=== PATIENT | male | born 1965 | race Caucasian/White ===

== ENCOUNTER 2019-12-26 19:44 | Emergency (ER) | payer SELFPAY ==
[2019-12-26 20:34] LABS: Absolute Lymphocytes (CBC) 1.5 K/uL (0.7-4.9); Basophils % 0.8 % (0-1.3); Hematocrit 40.5 % (39.6-49.0); Lymphocytes % 25.2 % (15.3-44.8); MPV 9.4 fL (7.6-11.3)
[2019-12-26] MEDS ORDERED: ONDANSETRON 4 MG/2 ML VIAL ONE (20:34)
[2019-12-26] MEDS ORDERED: NA CHLORIDE 0.9% 1,000 ML ONE (20:34)
[2019-12-26] MEDS ORDERED: MORPHINE 4 MG/ML SYR ONE (20:35)
[2019-12-26 20:52] LABS: ALT/SGPT 179 U/L (12-78); AST/SGOT 157 U/L (15-37); Albumin 2.8 g/dL (3.4-5.0); Alkaline Phosphatase 152 U/L (45-117); BUN Blood Urea Nitrogen 12 mg/dL (7-18); Bicarbonate 24 mmol/L (21-32); Bilirubin Direct 1.1 mg/dL (0-0.2); Bilirubin Total 1.5 mg/dL (0.2-1.0); Glucose Level 89 mg/dL (74-106); Lipase 408 U/L (73-393); Potassium 3.9 mmol/L (3.5-5.1); Protein, Total 7.4 g/dL (6.4-8.2); Sodium Level 141 mmol/L (136-145)
[2019-12-26 21:36] LABS: Urine Blood NEGATIVE (NEG); Urine Glucose NEGATIVE (NEG); Urine Protein NEGATIVE (NEG); Urine Specific Gravity 1.025 (1.005-1.030); Urine pH 5.5 (5.0-7.0)
--- NOTE | 2019-12-26 22:36 | ER ---
Nurse's Notes [facility] – [place], [place] Name: Anant Lewis Jr Age: 54 yrs Sex: Male : 1965 Arrival Date: 12/26/2019 Time: 19:48 Bed 14 Private MD: Diagnosis: Cholelithiasis;Alcoholic cirrhosis of liver;Other abdominal pain;Headache Presentation: 12/26 19:57 Presenting complaint: Patient states: "I have a knot at the top of my stomach when I aj1 lay down and its really hard" Reports that he first noticed it yesterday. Reports epigastric pain. States that he has been having intermittent diarrhea for 2 months. Patient also reports a headache. Transition of care: patient was not received from another setting of care. Onset of symptoms was December 2019. Risk Assessment: Do you want to hurt yourself or someone else? Patient reports no desire to harm self or others. Initial Sepsis Screen: Does the patient meet any 2 criteria? No. Patient's initial sepsis screen is negative. Does the patient have a suspected source of infection? Yes: Acute abdominal pain. Care prior to arrival: None. 19:57 Method Of Arrival: Ambulatory [facility] 19:57 Acuity: AUTUMN 3 aj1 Triage Assessment: 19:58 General: Appears in no apparent distress. comfortable, Behavior is calm, cooperative, aj1 appropriate for age. Pain: Pain currently is 4 out of 10 on a pain scale. Neuro: Level of Consciousness is awake, alert, obeys commands. Cardiovascular: Patient's skin is warm and dry. Respiratory: Airway is patent Respiratory effort is even, unlabored, Respiratory pattern is regular, symmetrical. Historical: - Allergies: 19:58 No Known Allergies; aj1 - Home Meds: 19:58 None [Active]; aj1 - PMHx: 19:58 None; aj1 - PSHx: 19:58 None; aj1 - Immunization history:: Adult Immunizations up to date. - Coronavirus screen:: The patient has NOT traveled to [place] in the past 14 days. - Social history:: Smoking status: Patient/guardian denies using tobacco. - Ebola Screening: : Patient denies travel to an Ebola-affected area in the 21 days before illness onset. Screenin:11 Abuse screen: Denies threats or abuse. Denies injuries from another. Nutritional rv screening: No deficits noted. Tuberculosis screening: No symptoms or risk factors identified. Fall Risk None identified. Assessment: 21:10 General: Appears in no apparent distress. Behavior is calm, cooperative. Pain: rv Complains of pain in abdomen. Neuro: Level of Consciousness is awake, alert, obeys commands, Oriented to person, place, time, situation. Cardiovascular: Patient's skin is warm and dry. Respiratory: Airway is patent. GI: Abdomen is round non-distended. 21:13 Reassessment: patient taken to CT scan. rv 21:38 Reassessment: patient came back from CT scan. ultrasound at bedside. rv 22:49 Reassessment: John explained the test results and discharge plan. patient refused rv the pain medication ordered. discharged patient ambulatory with spouse. Vital Signs: 19:58 BP 149 / 95; Pulse 76; Resp 18; Temp 98.1; Pulse Ox 99% on R/A; Weight 101.6 kg; Height aj1 5 ft. 6 in. (167.64 cm) (R); Pain 4/10; 20:30 BP 132 / 81; Pulse 70; Resp 17; Pulse Ox 96% on R/A; rv 21:00 BP 129 / 77; Pulse 72; Resp 17; Pulse Ox 96% on R/A; rv 21:40 BP 130 / 85; Pulse 72; Resp 16; Pulse Ox 98% on R/A; rv 22:30 BP 138 / 95; Pulse 70; Resp 15; Pulse Ox 98% on R/A; rv 19:58 Body Mass Index 36.15 (101.60 kg, 167.64 cm) aj1 ED Course: 19:48 Patient arrived in ED. es 19:58 Triage completed. aj1 20:02 John Mast NP is PHCP. pm1 20:02 Regi Phelps MD is Attending Physician. pm1 20:15 Inserted saline lock: 20 gauge in right antecubital area, using aseptic technique. ds4 Blood collected. 20:24 Lipase Sent. ds4 20:24 Hepatic Function Sent. ds4 20:25 Creatinine for Radiology Sent. ds4 20:25 CBC with Diff Sent. ds4 20:25 Basic Metabolic Panel Sent. ds4 20:28 Dwight Brower, ANGELINA is Primary Nurse. rv 20:44 Radiology exam delayed due to lab results not completed at this time. (BUN/Creatinine). bq 21:13 Patient has correct armband on for positive identification. Placed in gown. Bed in low rv position. Call light in reach. Pulse ox on. NIBP on. 21:38 Patient placed in the treatment room, on a stretcher, Patient notified of wait time. rv 22:48 No provider procedures requiring assistance completed. IV discontinued, intact, rv bleeding controlled, No redness/swelling at site. Pressure dressing applied. 23:53 CT Abd/Pelvis - IV Contrast Only In Process Unspecified. EDMS 23:53 CT Head Brain wo Cont In Process Unspecified. EDMS 12/27 00:06 US Abdomen Limited In Process Unspecified. EDMS Administered Medications: 12/26 20:36 Drug: NS 0.9% 1000 ml Route: IV; Rate: 1000 ml; Site: right antecubital; rv 22:53 Follow up: IV Status: Completed infusion; IV Intake: 1000ml rv 22:51 Not Given (Patient Refused): morphine 4 mg IVP once; RASS on ADMIN: Combtv4, Very rv Agttd3, Agttd2, Rstlss1, AlertClm0, Drwsy-1, Lt Sdtn-2, Mod Sdtn-3, Dp Sdtn-4, UnArsble-5 22:51 Not Given (Patient Refused): Zofran 4 mg IVP once; over 2 minutes rv Intake: 22:53 IV: 1000ml; Total: 1000ml. rv Outcome: 22:34 Discharge ordered by MD. pm1 22:49 Discharged to home ambulatory, with family. rv 22:49 Condition: good 22:49 Discharge instructions given to patient, Instructed on discharge instructions, follow up and referral plans. medication usage, Demonstrated understanding of instructions, follow-up care, medications, Prescriptions given X 2. 22:51 Patient left the ED. rr5 Signatures: Dispatcher [employer] Andreea Lema, RN RN aj1 [place]ta [place] Betty bq Swanson, Donovan ds4 John Mast, JALYN RNP pm1 Dwight Brower RN RN rv Holger Smith RN RN rr5
--- NOTE | 2019-12-26 22:37 | EDPHYS ---
Physician Documentation [facility] Name: Anant Lewis Jr Age: 54 yrs Sex: Male : 1965 Arrival Date: 12/26/2019 Time: 19:48 Bed 14 Private MD: ED Physician Regi Phelps HPI: 12/26 20:10 This 54 yrs old Male presents to ER via Ambulatory with complaints of pm1 Abdominal pain and headache. 20:10 The patient presents with abdominal pain in the upper abdomen. Onset: The pm1 symptoms/episode began/occurred this morning. The symptoms do not radiate. Associated signs and symptoms: Pertinent positives: on and off diarrhea for the past 2 months. Today his stool is loose, Pertinent negatives: nausea, vomiting, and diarrhea, chest pain, constipation, dysuria, fever, shortness of breath. The symptoms are described as bloating. Modifying factors: The symptoms are alleviated by nothing, the symptoms are aggravated by nothing. Severity of pain: in the emergency department the pain is actually worse. The patient has not experienced similar symptoms in the past. Patient with abdominal pain onset this AM with sensation of a knot on his upper abdomen. No nausea, vomiting, diarrhea, or fever. Has had a frontal headache for the past 1 week that improves with ibuprofen and sleep. 20:10 Does not drink regularly but last drink was 1 beer 6 days ago. pm1 Historical: - Allergies: 19:58 No Known Allergies; aj1 - Home Meds: 19:58 None [Active]; aj1 - PMHx: 19:58 None; aj1 - PSHx: 19:58 None; aj1 - Immunization history:: Adult Immunizations up to date. - Coronavirus screen:: The patient has NOT traveled to [place] in the past 14 days. - Social history:: Smoking status: Patient/guardian denies using tobacco. - Ebola Screening: : Patient denies travel to an Ebola-affected area in the 21 days before illness onset. ROS: 20:10 Constitutional: Negative for fever, chills, and weight loss, Neck: Negative for injury, pm1 pain, and swelling, Cardiovascular: Negative for chest pain, palpitations, and edema, Respiratory: Negative for shortness of breath, cough, wheezing, and pleuritic chest pain. 20:10 Back: Negative for injury and pain, : Negative for injury, bleeding, discharge, and swelling, MS/Extremity: Negative for injury and deformity, Skin: Negative for injury, rash, and discoloration. 20:10 Abdomen/GI: Positive for abdominal pain, of the right upper quadrant and left upper quadrant, Negative for nausea, vomiting, and diarrhea, constipation. 20:10 Neuro: Positive for headache, Negative for numbness, tingling, weakness. Exam: 20:10 Constitutional: This is a well developed, well nourished patient who is awake, alert, pm1 and in no acute distress. Head/Face: Normocephalic, atraumatic. Neck: Trachea midline, no thyromegaly or masses palpated, and no cervical lymphadenopathy. Supple, full range of motion without nuchal rigidity, or vertebral point tenderness. No Meningismus. Chest/axilla: Normal chest wall appearance and motion. Nontender with no deformity. No lesions are appreciated. Cardiovascular: Regular rate and rhythm with a normal S1 and S2. No gallops, murmurs, or rubs. Normal PMI, no JVD. No pulse deficits. Respiratory: Lungs have equal breath sounds bilaterally, clear to auscultation and percussion. No rales, rhonchi or wheezes noted. No increased work of breathing, no retractions or nasal flaring. 20:10 Back: No spinal tenderness. No costovertebral tenderness. Full range of motion. Skin: Warm, dry with normal turgor. Normal color with no rashes, no lesions, and no evidence of cellulitis. MS/ Extremity: Pulses equal, no cyanosis. Neurovascular intact. Full, normal range of motion. 20:10 Abdomen/GI: Inspection: obese Bowel sounds: normal, Palpation: abdomen is soft and non-tender, mass, is not appreciated, rebound tenderness, is not appreciated. 20:10 Neuro: Orientation: is normal, Mentation: is normal, Motor: is normal, moves all fours, Sensation: is normal, no obvious gross deficits. Vital Signs: 19:58 BP 149 / 95; Pulse 76; Resp 18; Temp 98.1; Pulse Ox 99% on R/A; Weight 101.6 kg; Height aj1 5 ft. 6 in. (167.64 cm) (R); Pain 4/10; 20:30 BP 132 / 81; Pulse 70; Resp 17; Pulse Ox 96% on R/A; rv 21:00 BP 129 / 77; Pulse 72; Resp 17; Pulse Ox 96% on R/A; rv 21:40 BP 130 / 85; Pulse 72; Resp 16; Pulse Ox 98% on R/A; rv 22:30 BP 138 / 95; Pulse 70; Resp 15; Pulse Ox 98% on R/A; rv 19:58 Body Mass Index 36.15 (101.60 kg, 167.64 cm) aj1 MDM: 20:03 Patient medically screened. pm1 20:03 Data reviewed: vital signs. Data interpreted: Pulse oximetry: on room air is 99 %. pm1 Interpretation: normal. 22:31 Counseling: I had a detailed discussion with the patient and/or guardian regarding: the pm1 historical points, exam findings, and any diagnostic results supporting the discharge/admit diagnosis, lab results, radiology results, the need for outpatient follow up, a heritage consultant, to return to the emergency department if symptoms worsen or persist or if there are any questions or concerns that arise at home, Patient with a former history of alcoholism with resulting liver cirrhosis and positive for hepatitis C. Patient's liver function test expected with history and CT abdomen does not show cholecystitis or pancreatitis. Educated the patient on the importance of following up with GI for further treatment and evalution. 12/26 20:09 Order name: Basic Metabolic Panel pm1 12/26 20:09 Order name: CBC with Diff pm12/26 20:09 Order name: Creatinine for Radiology pm12/26 20:09 Order name: Hepatic Function pm12/26 20:09 Order name: Lipase pm12/26 20:47 Order name: CBC with Automated Diff; Complete Time: 20:51 EDMS 12/26 20:09 Order name: CT Abd/Pelvis - IV Contrast Only pm12/26 20:09 Order name: CT Head Brain wo Cont pm12/26 20:49 Order name: Creatinine (Radiology Only); Complete Time: 20:51 EDMS 12/26 20:53 Order name: Basic Metabolic Panel; Complete Time: 20:56 EDMS 12/26 20:53 Order name: Liver (Hepatic) Function; Complete Time: 20:56 EDMS 12/26 20:53 Order name: Lipase; Complete Time: 20:56 EDMS 12/26 21:23 Order name: Urine Dipstick--Ancillary (enter results) [place] 12/26 21:37 Order name: Urine Dipstick-Ancillary; Complete Time: 21:46 EDWV 12/26 20:09 Order name: IV Saline Lock; Complete Time: 20:24 pm1 12/26 20:09 Order name: Labs collected and sent; Complete Time: 20:24 pm1 12/26 20:10 Order name: Urine Dipstick-Ancillary (obtain specimen); Complete Time: 22:51 pm1 12/26 20:58 Order name: US Abdomen Limited pm1 Administered Medications: 20:36 Drug: NS 0.9% 1000 ml Route: IV; Rate: 1000 ml; Site: right antecubital; rv 22:53 Follow up: IV Status: Completed infusion; IV Intake: 1000ml rv 22:51 Not Given (Patient Refused): morphine 4 mg IVP once; RASS on ADMIN: Combtv4, Very rv Agttd3, Agttd2, Rstlss1, AlertClm0, Drwsy-1, Lt Sdtn-2, Mod Sdtn-3, Dp Sdtn-4, UnArsble-5 22:51 Not Given (Patient Refused): Zofran 4 mg IVP once; over 2 minutes rv Disposition: 12/27 19:05 Co-signature as Attending Physician, Regi Phelps MD. ma2 Disposition: 12/26/19 22:34 Discharged to Home. Impression: Other abdominal pain, Cholelithiasis, Alcoholic cirrhosis of liver, Headache. - Condition is Stable. - Discharge Instructions: Abdominal Pain, Adult, Cholelithiasis, Alcoholic Liver Disease. - Prescriptions for Pepcid 20 mg Oral Tablet - take 1 tablet by ORAL route every 12 hours for 10 days; 20 tablet. Tramadol 50 mg Oral Tablet - take 1 tablet by ORAL route every 8 hours as needed; 12 tablet. - Medication Reconciliation Form, Thank You Letter, Antibiotic Education, Prescription Opioid Use form. - Follow up: Emergency Department; When: As needed; Reason: Worsening of condition. Follow up: Private Physician; When: 2 - 3 days; Reason: Recheck today's complaints, Continuance of care, Re-evaluation by your physician. - Problem is new. - Symptoms have improved. Signatures: Dispatcher [employer] [facility] Andreea Pereira RN RN aj1 John Mast NP [employer] pm1 Regi Phelps MD MD ma2 Dwight Brower RN RN rv Holger Smith RN RN rr5 Corrections: (The following items were deleted from the chart) 12/26 22:51 22:34 12/26/2019 22:34 Discharged to Home. Impression: Other abdominal rr5 painCholelithiasis; Alcoholic cirrhosis of liver; Headache. Condition is Stable. Forms are Medication Reconciliation Form, Thank You Letter, Antibiotic Education, Prescription Opioid Use. Follow up: Emergency Department; When: As needed; Reason: Worsening of condition. Follow up: Private Physician; When: 2 - 3 days; Reason: Recheck today's complaints, Continuance of care, Re-evaluation by your physician. Problem is new. Symptoms have improved. pm1
[2019-12-26 23:17] VITALS: TEMP 98.1
[2019-12-26 23:21] VITALS: O2SAT 98
[2019-12-26 23:22] VITALS: BP 138/95
--- NOTE | 2019-12-27 08:03 | RAD REPORT ---
EXAM DESCRIPTION: US - Abdomen Exam Limited - 12/26/2019 9:52 pm CLINICAL HISTORY: Abdominal pain. COMPARISON: None. FINDINGS: A 5 millimeter a stone within the neck of the gallbladder. Gallbladder is mildly contracte d. Patient had recently eaten. Gallbladder wall is not thickened The biliary tree is normal caliber. IMPRESSION: Cholelithiasis
--- NOTE | 2019-12-27 10:35 | RAD REPORT ---
EXAM DESCRIPTION: CT - Abdomen Pelvis W Contrast - 12/26/2019 9:47 pm CLINICAL HISTORY: The patient is 54 years old and is Male; Upper abdominal pain TECHNIQUE: Axial computed tomography images of the abdomen and pelvis with intravenous contrast. S agittal and coronal reformatted images were created and reviewed. This CT exam was performed using one or more of the following dose reduction techniques: automated exposure control, adjustment of t he mA and/or kV according to patient size, and/or use of iterative reconstruction technique. COMPARISON: No relevant prior studies available. FINDINGS: LUNG BASES: Unremarkable. No mass. No consolidation. MEDIASTINUM: Small hiatal hernia is present. ABDOMEN: LIVER: The liver has a nodular contour. GALLBLADDER AND BILE DUCTS: Punctate calcified gallstone is present within the gallbladder. PANCREAS: No ductal dilation. No mass. SPLEEN: The spleen is enlarged. ADRENALS: Unremarkable. No mass. KIDNEYS AND URETERS: Punctate left intrarenal calcification is present. There is no hydronephros is or hydroureter of either kidney. No obstructing renal or ureteral calculus is seen. STOMACH AND BOWEL: The stomach is distended with food contents. The small bowel is relatively no rmal in caliber. Stool is present throughout colon. There is no mucosal thickening or evidence of bow el obstruction. PELVIS: APPENDIX: No findings to suggest acute appendicitis. BLADDER: Unremarkable. No mass. REPRODUCTIVE: Unremarkable as visualized. ABDOMEN and PELVIS: INTRAPERITONEAL SPACE: Unremarkable. No free air. No significant fluid collection. BONES/JOINTS: No acute fracture. SOFT TISSUES: The soft tissues are normal. VASCULATURE: Esophageal varices are noted. No abdominal aortic aneurysm. LYMPH NODES: Unremarkable. No enlarged lymph nodes. IMPRESSION: 1. Cholelithiasis without CT evidence to suggest cholecystitis. 2. Left nephrolithiasis without obstruction. 3. Cirrhotic liver and splenomegaly with findings suggestive of portal hypertension. Electronically signed by: Candi Palmer MD 12/26/2019 9:56 PM TALCER Due to temporary technical issues with the PACS/Fluency reporting system, reports are being signed by the in house radiologist as a courtesy to ensure prompt reporting. The interpreting radiologist is f ully responsible for the content of the report.
--- NOTE | 2019-12-27 10:38 | RAD REPORT ---
EXAM DESCRIPTION: CT - Head Brain Wo Cont - 12/26/2019 9:41 pm CLINICAL HISTORY: 54 years Male HEADACHE COMPARISON: None TECHNIQUE: Images were obtained in axial, sagittal, and coronal planes. This exam was performed according to our departmental dose-optimization program which includes use of Automated Exposure Control, adjustment of the mA and/or kV according to patient size and/or use of i terative reconstruction technique. FINDINGS: Ventricular system appears normal. No abnormal areas of increased or decreased attenuation are seen involving the brain parenchyma. No e xtra-axial fluid collections noted. No evidence for skull fracture. Sclerotic changes mastoid air cells bilaterally. Unremarkable paranas al sinuses. IMPRESSION: No acute intracranial abnormality. No evidence for hemorrhage, mass lesion, or large acu te infarction. Electronically signed by: Barbara Calderon MD 12/26/2019 9:45 PM PHP ENGINEER Due to temporary technical issues with the PACS/Fluency reporting system, reports are being signed by the in house radiologist as a courtesy to ensure prompt reporting. The interpreting radiologist is f ully responsible for the content of the report.
== END 2019-12-26 22:51 | disposition home or self-care (01) ==
LOC: ER 19:44
DX: K80.20 Calculus of gallbladder without cholecystitis without obstruction (principal); K70.30 Alcoholic cirrhosis of liver without ascites; R51 Headache
CPT/HCPCS: 36415; 70450; 74177; 76705; 80048; 80076; 81003; 83690; 85025; 96360; 96361; 99284; J2405; J7030; Q9967

== ENCOUNTER 2020-04-04 11:27 | Emergency (ER) | payer SELFPAY ==
[2020-04-04 12:41] VITALS: TEMP 97.6
[2020-04-04 12:42] VITALS: BP 142/85; O2SAT 95
--- NOTE | 2020-04-10 13:10 | EDPHYS ---
Physician Documentation [facility] Name: Anant Lewis Jr Age: 54 yrs Sex: Male : 1965 Arrival Date: 04/04/2020 Time: 11:29 Bed 15 Private MD: ED Physician Rogelio Enamorado HPI: 04/04 11:45 This 54 yrs old Male presents to ER via Ambulatory with complaints of Eye rn Swelling, Boil. 11:45 The patient is experiencing. rn 11:46 The patient presents with cellulitis of the right eye. Description: erythematous, rn swollen. Onset: The symptoms/episode began/occurred yesterday. Possible cause(s): unknown. Modifying factors: the symptoms are alleviated by nothing, the symptoms are aggravated by squeezing the lesion and expressing the contents, touching. Severity of symptoms: At their worst the symptoms were mild, in the emergency department the symptoms are unchanged. The patient has experienced similar episodes in the past. Reports gets skin infections often, noticed small pimple above right eye yesterday, squeezed it and popped, but now skin around right eye is red and warm. no fever. No visual problems. . Historical: - Allergies: 11:31 No Known Allergies; rb1 - Home Meds: 11:31 None [Active]; rb1 - PMHx: 11:31 Hepatitis C; COPD; rb1 - PSHx: 11:31 Appendectomy; Hernia repair; Nose; rb1 - Immunization history:: Adult Immunizations up to date. - Social history:: Smoking status: Patient/guardian denies using. - Family history:: not pertinent. - Hospitalizations: : No recent hospitalization is reported. ROS: 11:46 Constitutional: Negative for fever, chills, and weight loss, Eyes: + right periorbital rn swelling and redness ENT: Negative for injury, pain, and discharge, Cardiovascular: Negative for chest pain, palpitations, and edema, Respiratory: Negative for shortness of breath, cough, wheezing, and pleuritic chest pain, Abdomen/GI: Negative for abdominal pain, nausea, vomiting, diarrhea, and constipation, Skin: Negative for injury Neuro: Negative for headache, weakness, numbness, tingling, and seizure. Exam: 11:46 Constitutional: This is a well developed, well nourished patient who is awake, alert, rn and in no acute distress. Head/Face: Normocephalic, atraumatic. Eyes: Pupils equal round and reactive to light, extra-ocular motions intact. Lids and lashes normal. Conjunctiva and sclera are non-icteric and not injected. Cornea within normal limits. + right periorbital erythema and warmth, surrounds central pustular lesion that is sub-centimeter, and open center wound, unable to express more purulence. Vital Signs: 11:31 BP 152 / 98; Pulse 77; Resp 20; Temp 97.6; Pulse Ox 97% on R/A; Weight 131.09 kg; rb1 Height 5 ft. 6 in. (167.64 cm); Pain 6/10; 12:33 BP 142 / 85; Pulse 73; Resp 16; Pulse Ox 95% ; bp 11:31 Body Mass Index 46.65 (131.09 kg, 167.64 cm) rb1 MDM: 11:40 Patient medically screened. rn 11:46 Differential diagnosis: cellulitis. Data reviewed: vital signs, nurses notes, and as a rn result, I will discharge patient. Counseling: I had a detailed discussion with the patient and/or guardian regarding: the historical points, exam findings, and any diagnostic results supporting the discharge/admit diagnosis, the need for outpatient follow up, to return to the emergency department if symptoms worsen or persist or if there are any questions or concerns that arise at home. Special discussion: I discussed with the patient/guardian in detail that at this point there is no indication for admission to the hospital. It is understood, however, that if the symptoms persist or worsen the patient needs to return immediately for re-evaluation. ED course: No need for I\T\D, is sub-centimeter, and already open, recommend double abx and warm compress, return precautions given and understood. . Administered Medications: No medications were administered Disposition: 04/04/20 11:49 Discharged to Home. Impression: Periorbital cellulitis - right eye. - Condition is Stable. - Discharge Instructions: Preseptal Cellulitis, Adult. - Prescriptions for Keflex 500 mg Oral Capsule - take 1 capsule by ORAL route every 12 hours for 10 days; 20 capsule. Bactrim DS 800- 160 mg Oral Tablet - take 1 tablet by ORAL route every 12 hours for 10 days; 20 tablet. - Medication Reconciliation Form, Thank You Letter, Antibiotic Education, Prescription Opioid Use form. - Follow up: Private Physician; When: As needed; Reason: Recheck today's complaints, Re-evaluation by your physician. - Problem is new. - Symptoms are unchanged. Signatures: Rogelio Enamorado MD MD rn Barber, Rebecca, RN RN rb1 Song Patel RN RN bp Corrections: (The following items were deleted from the chart) 12:35 11:49 04/04/2020 11:49 Discharged to Home. Impression: Periorbital cellulitis - right bp eye. Condition is Stable. Forms are Medication Reconciliation Form, Thank You Letter, Antibiotic Education, Prescription Opioid Use. Follow up: Private Physician; When: As needed; Reason: Recheck today's complaints, Re-evaluation by your physician. Problem is new. Symptoms are unchanged. rn
--- NOTE | 2020-04-10 13:10 | ER ---
Nurse's Notes [facility] Name: Anant Lewis Jr Age: 54 yrs Sex: Male : 1965 Arrival Date: 04/04/2020 Time: 11:29 Bed 15 Private MD: Diagnosis: Periorbital cellulitis - right eye Presentation: 04/04 11:31 Chief complaint: Patient states: He got a boil on his right eye yesterday, he gets them rb1 all over his body. Now his eye is swollen. Coronavirus screen: Patient denies a cough. Patient reports shortness of breath or difficulty breathing. Patient denies measured and/or subjective temperature greater than 100.4F prior to today's visit. Patient denies travel on a cruise ship or to a country the [facility] currently lists as an affected area. Patient denies contact with known and/or suspected case of COVID-19. Ebola Screen: Patient denies travel to an Ebola-affected area in the 21 days before illness onset. Initial Sepsis Screen: Does the patient meet any 2 criteria? No. Patient's initial sepsis screen is negative. Risk Assessment: Do you want to hurt yourself or someone else? Patient reports no desire to harm self or others. Onset of symptoms was April 03, 2020. 11:31 Method Of Arrival: Ambulatory rb1 11:31 Acuity: AUTUMN 4 rb1 Triage Assessment: 11:36 General: Appears in no apparent distress. comfortable, obese, Behavior is cooperative, bp appropriate for age, anxious. Pain: Complains of pain in right eye. EENT: No deficits noted. Neuro: No deficits noted. Cardiovascular: No deficits noted. Respiratory: No deficits noted. GI: No signs and/or symptoms were reported involving the gastrointestinal system. : No signs and/or symptoms were reported regarding the genitourinary system. Derm: Abscess located on right eye. Musculoskeletal: No deficits noted. Historical: - Allergies: 11:31 No Known Allergies; rb1 - Home Meds: :31 None [Active]; rb1 - PMHx: 11:31 Hepatitis C; COPD; rb1 - PSHx: 11:31 Appendectomy; Hernia repair; Nose; rb1 - Immunization history:: Adult Immunizations up to date. - Social history:: Smoking status: Patient/guardian denies using. - Family history:: not pertinent. - Hospitalizations: : No recent hospitalization is reported. Screenin:37 Abuse screen: Denies threats or abuse. Denies injuries from another. Nutritional bp screening: No deficits noted. Tuberculosis screening: No symptoms or risk factors identified. Fall Risk None identified. Assessment: 11:37 General: SEE TRIAGE NOTE. bp 12:34 Reassessment: PT D/C HOME AMBULATORY, DX WITH PERIORBITAL CELLULITIS. bp Vital Signs: 11:31 BP 152 / 98; Pulse 77; Resp 20; Temp 97.6; Pulse Ox 97% on R/A; Weight 131.09 kg; rb1 Height 5 ft. 6 in. (167.64 cm); Pain 6/10; 12:33 BP 142 / 85; Pulse 73; Resp 16; Pulse Ox 95% ; bp 11:31 Body Mass Index 46.65 (131.09 kg, 167.64 cm) rb1 ED Course: 11:29 Patient arrived in ED. as 11:31 Song Patel, RN is Primary Nurse. bp 11:31 Arm band placed on right wrist. rb1 11:37 Patient has correct armband on for positive identification. Bed in low position. Call bp light in reach. Side rails up X2. 11:40 Rogelio Enamorado MD is Attending Physician. rn 11:42 Triage completed. rb1 12:34 No provider procedures requiring assistance completed. Patient did not have IV access bp during this emergency room visit. Administered Medications: No medications were administered Outcome: 11:49 Discharge ordered by . rn 12:34 Discharged to home ambulatory. bp 12:34 Condition: stable 12:34 Discharge instructions given to patient, Instructed on discharge instructions, follow up and referral plans. medication usage, wound care, Demonstrated understanding of instructions, follow-up care, medications, wound care, Prescriptions given X 2. 12:35 Patient left the ED. bp Signatures: Lyla Ochoa Roman, MD MD rn Barber, Rebecca, RN RN rb1 Song Patel RN RN bp
== END 2020-04-04 12:35 | disposition home or self-care (01) ==
LOC: ER 11:27
DX: L03.213 Periorbital cellulitis (principal)
CPT/HCPCS: 99282